=== PATIENT | male | born 1995 | race African-American/Black ===

== ENCOUNTER 2017-12-31 02:23 | Emergency (ER) | payer SELFPAY ==
[~2017-12-31] VITALS: Ht 195.6 cm; Wt 96.3 kg
[2017-12-31] MEDS ORDERED: IBUPROFEN 800MG TABLET PO ONE (07:30)
[2017-12-31 08:25] VITALS: BP 106/54
== END 2017-12-31 08:39 | disposition home or self-care (01) ==
LOC: ER 02:23
DX: S10.83XA Contusion of other specified part of neck, initial encounter (principal); S30.0XXA Contusion of lower back and pelvis, initial encounter; V43.62XA Car passenger injured in collision with other type car in traffic accident, initial encounter; Y93.89 Activity, other specified; Y92.488 Other paved roadways as the place of occurrence of the external cause
CPT/HCPCS: 72100; 99284